=== PATIENT | male | born 1975 | race Asian ===

== ENCOUNTER → 2020-03-05 09:21 | Outpatient (BNVA) | payer OTHER, SELFPAY | PROVIDERS: PCP Internal Medicine; Visit Provider Internal Medicine | DX: Z51.81 Encounter for therapeutic drug level monitoring (principal); Z79.899 Other long term (current) drug therapy | CPT/HCPCS: 80305 ==

== ENCOUNTER → 2020-04-05 09:43 | Outpatient (BNVA) | payer OTHER, SELFPAY | PROVIDERS: Visit Provider Internal Medicine | DX: Z76.89 Persons encountering health services in other specified circumstances (principal) ==

== ENCOUNTER → 2020-04-30 13:25 | Outpatient (BNVA) | payer OTHER, SELFPAY | PROVIDERS: Visit Provider Internal Medicine | DX: Z76.89 Persons encountering health services in other specified circumstances (principal) ==

== ENCOUNTER → 2020-05-31 09:28 | Outpatient (BNVA) | payer OTHER, SELFPAY | PROVIDERS: Visit Provider Internal Medicine | DX: Z76.89 Persons encountering health services in other specified circumstances (principal) ==

== ENCOUNTER → 2020-06-28 09:37 | Outpatient (BNVA) | payer OTHER, SELFPAY | PROVIDERS: Visit Provider Internal Medicine ==

== ENCOUNTER → 2020-07-26 09:46 | Outpatient (BNVA) | payer OTHER, SELFPAY | PROVIDERS: PCP Internal Medicine; Visit Provider Internal Medicine | DX: F11.99 Opioid use, unspecified with unspecified opioid-induced disorder (principal) ==

== ENCOUNTER → 2020-08-23 09:36 | Outpatient (BNVA) | payer OTHER, SELFPAY | PROVIDERS: PCP Internal Medicine; Visit Provider Internal Medicine | DX: Z51.81 Encounter for therapeutic drug level monitoring (principal) | CPT/HCPCS: 80305 ==

== ENCOUNTER → 2020-09-20 09:01 | Outpatient (BNVA) | payer OTHER, SELFPAY | PROVIDERS: Visit Provider Internal Medicine | DX: Z51.81 Encounter for therapeutic drug level monitoring (principal) | CPT/HCPCS: 80305 ==

== ENCOUNTER → 2020-10-16 11:45 | Outpatient (BNVA) | payer OTHER, SELFPAY | PROVIDERS: Visit Provider Internal Medicine | DX: Z51.81 Encounter for therapeutic drug level monitoring (principal) | CPT/HCPCS: 80305 ==

== ENCOUNTER → 2020-12-11 09:28 | Outpatient (BNVA) | payer OTHER, SELFPAY | PROVIDERS: PCP Internal Medicine; Visit Provider Internal Medicine | DX: F11.20 Opioid dependence, uncomplicated (principal) | CPT/HCPCS: 80305 ==

== ENCOUNTER 2021-02-05 10:04 | Outpatient (REF) | payer OTHER, SELFPAY ==
[2021-02-05 17:08] LABS: Fentanyl, urine Not Detected (Not Detect)
== END 2021-02-05 10:05 | disposition home or self-care (01) ==
LOC: HO.LNP 10:04
PROVIDERS: Visit Provider Internal Medicine
DX: F11.20 Opioid dependence, uncomplicated (principal); Z79.899 Other long term (current) drug therapy
CPT/HCPCS: 80307

== ENCOUNTER → 2021-04-02 10:23 | Outpatient (BNVA) | payer OTHER, SELFPAY | PROVIDERS: Visit Provider Internal Medicine | DX: F11.90 Opioid use, unspecified, uncomplicated (principal) | CPT/HCPCS: 80305 ==

== ENCOUNTER → 2021-06-04 10:36 | Outpatient (BNVA) | payer OTHER, SELFPAY | PROVIDERS: PCP Internal Medicine; Visit Provider Internal Medicine | DX: F11.20 Opioid dependence, uncomplicated (principal); Z51.81 Encounter for therapeutic drug level monitoring; Z79.899 Other long term (current) drug therapy | CPT/HCPCS: 80305 ==

== ENCOUNTER → 2021-07-30 10:37 | Outpatient (BNVA) | payer OTHER, SELFPAY | PROVIDERS: PCP Internal Medicine; Visit Provider Internal Medicine | DX: F11.20 Opioid dependence, uncomplicated (principal); Z51.81 Encounter for therapeutic drug level monitoring; Z79.899 Other long term (current) drug therapy | CPT/HCPCS: 80305 ==

== ENCOUNTER 2021-08-07 12:32 | Outpatient (REF) | payer OTHER, SELFPAY ==
--- NOTE | ~2021-08-07 | XR_ITS ---
EXAMINATION: XR KNEE, BILATERAL XR KNEE, LEFT CLINICAL INFORMATION: Left knee pain. COMPARISON: Multiple priors, most recent left knee radiographs dated 05/29/2019. TECHNIQUE: Standing AP view of both knees and lateral and sunrise views of the left knee. FINDINGS: Right knee: Mild medial compartment joint space narrowing with small marginal osteophytes. No osseous erosion. No fracture or dislocation. No abnormal soft tissue calcification. Left knee: Extensive tibial plateau orthopedic hardware is redemonstrated with medial, lateral, and posterior stabilization plates as well as multiple fixation screws. No hardware fracture. No perihardware lucency to suggest loosening or infection. Healed proximal tibia and proximal fibular fractures in anatomic alignment. Moderate medial compartment joint space narrowing. Small tricompartmental marginal osteophytes. No osseous erosion. No significant joint effusion. No abnormal soft tissue calcification. XR/XR knee standing BI IMPRESSION: Right knee: Mild medial compartment osteoarthritis. Left knee: Redemonstration of tibial plateau orthopedic hardware without evidence of hardware complication. Healed proximal tibia and fibular fractures. Moderate medial as well as more mild lateral and patellofemoral compartment osteoarthritis, slightly progressed.
--- NOTE | ~2021-08-07 | XR_ITS ---
EXAMINATION: XR KNEE, BILATERAL XR KNEE, LEFT CLINICAL INFORMATION: Left knee pain. COMPARISON: Multiple priors, most recent left knee radiographs dated 05/29/2019. TECHNIQUE: Standing AP view of both knees and lateral and sunrise views of the left knee. FINDINGS: Right knee: Mild medial compartment joint space narrowing with small marginal osteophytes. No osseous erosion. No fracture or dislocation. No abnormal soft tissue calcification. Left knee: Extensive tibial plateau orthopedic hardware is redemonstrated with medial, lateral, and posterior stabilization plates as well as multiple fixation screws. No hardware fracture. No perihardware lucency to suggest loosening or infection. Healed proximal tibia and proximal fibular fractures in anatomic alignment. Moderate medial compartment joint space narrowing. Small tricompartmental marginal osteophytes. No osseous erosion. No significant joint effusion. No abnormal soft tissue calcification. XR/XR knee LT 2V IMPRESSION: Right knee: Mild medial compartment osteoarthritis. Left knee: Redemonstration of tibial plateau orthopedic hardware without evidence of hardware complication. Healed proximal tibia and fibular fractures. Moderate medial as well as more mild lateral and patellofemoral compartment osteoarthritis, slightly progressed.
== END 2021-08-07 12:33 | disposition home or self-care (01) ==
LOC: HO.HOSX 12:32
PROVIDERS: Visit Provider Orthopaedic Surgery
DX: G57.32 Lesion of lateral popliteal nerve, left lower limb (principal); S82.142S Displaced bicondylar fracture of left tibia, sequela
CPT/HCPCS: 73560; 73565

== ENCOUNTER → 2021-09-24 10:35 | Outpatient (BNVA) | payer OTHER, SELFPAY | PROVIDERS: PCP Internal Medicine; Visit Provider Internal Medicine | DX: Z51.81 Encounter for therapeutic drug level monitoring (principal); F11.20 Opioid dependence, uncomplicated | CPT/HCPCS: 80305 ==

== ENCOUNTER → 2021-10-09 09:50 | Outpatient (BNVA) | payer OTHER, SELFPAY | PROVIDERS: PCP Internal Medicine; Visit Provider Nurse Practitioner Family | DX: G43.709 Chronic migraine without aura, not intractable, without status migrainosus (principal) ==

== ENCOUNTER → 2021-11-19 10:20 | Outpatient (BNVA) | payer OTHER, SELFPAY | PROVIDERS: PCP Internal Medicine; Visit Provider Internal Medicine | DX: Z51.81 Encounter for therapeutic drug level monitoring (principal); F11.20 Opioid dependence, uncomplicated | CPT/HCPCS: 80305 ==

== ENCOUNTER → 2022-03-27 08:19 | Outpatient (BNVA) | payer OTHER, SELFPAY | PROVIDERS: PCP Internal Medicine; Visit Provider Psychiatry & Neurology Neurology | DX: G43.119 Migraine with aura, intractable, without status migrainosus (principal); R06.83 Snoring; R40.0 Somnolence | CPT/HCPCS: 64615; 64645; J0585 ==

== ENCOUNTER 2022-05-21 11:55 | Outpatient (REF) | payer OTHER, SELFPAY ==
--- NOTE | ~2022-05-21 | XR_ITS ---
EXAMINATION: X-RAY BILATERAL KNEES X-RAY LEFT KNEE CLINICAL INFORMATION: Knee pain COMPARISON: Multiple prior radiographs latest 08/07/2021 TECHNIQUE: AP bilateral knees one view. Left knee 2 views. FINDINGS: Left knee: Status post-ORIF, with extensive orthopedic hardware in the proximal tibia. No milka-hardware lucency to suggest loosening or infection. Healed proximal tibia and fibular fractures.. No new acute fractures seen. Mild-moderate medial compartment arthritis. Marginal spurring in the 3 compartments. Patellofemoral joint space narrowing, more prominent from previous. Small suprapatellar joint fluid.. Right knee: Mild medial compartment osteoarthritis.. XR/XR knee standing BI IMPRESSION: Left knee: Redemonstrated tibial plateau orthopedic hardware, without evidence of hardware complication. No acute fractures seen. Tricompartment osteoarthritis. Mild-moderate medial compartment arthritis. Patellofemoral joint space narrowing more prominent from previous. Right knee: Mild medial compartment arthritis
--- NOTE | ~2022-05-21 | XR_ITS ---
EXAMINATION: X-RAY BILATERAL KNEES X-RAY LEFT KNEE CLINICAL INFORMATION: Knee pain COMPARISON: Multiple prior radiographs latest 08/07/2021 TECHNIQUE: AP bilateral knees one view. Left knee 2 views. FINDINGS: Left knee: Status post-ORIF, with extensive orthopedic hardware in the proximal tibia. No milka-hardware lucency to suggest loosening or infection. Healed proximal tibia and fibular fractures.. No new acute fractures seen. Mild-moderate medial compartment arthritis. Marginal spurring in the 3 compartments. Patellofemoral joint space narrowing, more prominent from previous. Small suprapatellar joint fluid.. Right knee: Mild medial compartment osteoarthritis.. XR/XR knee LT 2V IMPRESSION: Left knee: Redemonstrated tibial plateau orthopedic hardware, without evidence of hardware complication. No acute fractures seen. Tricompartment osteoarthritis. Mild-moderate medial compartment arthritis. Patellofemoral joint space narrowing more prominent from previous. Right knee: Mild medial compartment arthritis
== END 2022-05-21 11:56 | disposition home or self-care (01) ==
LOC: HO.HOSX 11:55
PROVIDERS: Visit Provider Orthopaedic Surgery
DX: M17.12 Unilateral primary osteoarthritis, left knee (principal); Z96.9 Presence of functional implant, unspecified
CPT/HCPCS: 73560; 73565

== ENCOUNTER 2022-06-03 10:02 | Day surgery (SDC) | payer OTHER, SELFPAY ==
--- NOTE | 2022-06-02 08:59 | HO.ANESPROP2 ---
Documented by User: Yina Teixeira NP 06/02/22 09:00 HPI - Anesthesia Eval Consult details Narrative: 47yo M for Left Removal Orthopedic Hardware of knee Suboxone daily PMFSH Active Problems Active Problems: All Active Problems (Updated 05/21/22 @ 12:[address]) Retained orthopedic hardware (Acute) History of fracture of tibia (Acute) Osteoarthritis of left knee (Acute) Migraine with aura, intractable, without status migrainosus (Acute) Snoring (Acute) Daytime somnolence (Acute) Fingernail abnormalities (Acute) Chronic migraine without aura (Acute) Peroneal mononeuropathy (Acute) Tibial plateau fracture (Acute) Opioid use disorder (Acute) Past Medical History Medical History Opioid use disorder Family History Family History Mother Migraines Surgical History Surgical History H/O arthroscopic knee surgery History of carpal tunnel release History of surgery on lower extremity Social History Social History Alcohol intake: never Patient Tobacco Use Status: Never used Tobacco Second Hand Smoke Exposure: No Use of substances other than those prescribed or required for medical reasons: Yes Substance Use Type: Marijuana Are you DNR?: No Advance Directives: No Advance Directives Information Provided: Yes Advance Directives on File: No Current occupational status: employed Current occupation: [employer] Allergies Allergy/AdvReac Type Severity Reaction Status Date / Time seasonal Allergy Unknown congestion Uncoded 05/21/22 12:10 Naloxone HCl AdvReac Unknown migraines Uncoded 05/21/22 12:10 Home Medications Medication Instructions Recorded Confirmed Last Taken Type ltmjohj-hnnlnjspsmquw-ruryibcx 250 1 tab PO Q4-6H PRN Migraine 10/09/21 06/03/22 05/31/22 History mg-250 mg-65 mg tablet (Excedrin Headache Migraine) ibuprofen 800 mg tablet 800 mg PO Q8H PRN Pain 03/27/22 06/03/22 06/01/22 History Exam Exam Date and Time: June 02, 2022 0859 Assessment and Plan Assessment Anesthesia Assessment: Chart Reviewed Documented by User: Sancho West MD 06/03/22 11:32 PMFSH Past Medical History Medical History Opioid use disorder Family History Family History Mother Migraines Family history of problems with anesthesia: No Surgical History Surgical History H/O arthroscopic knee surgery History of carpal tunnel release History of surgery on lower extremity History of Problems with Anesthesia: No Social History Social History Alcohol intake: never Patient Tobacco Use Status: Never used Tobacco Second Hand Smoke Exposure: No Use of substances other than those prescribed or required for medical reasons: Yes Substance Use Type: Marijuana Are you DNR?: No Advance Directives: No Advance Directives Information Provided: Yes Advance Directives on File: No Current occupational status: employed Current occupation: [employer] Allergies Allergy/AdvReac Type Severity Reaction Status Date / Time seasonal Allergy Unknown congestion Uncoded 05/21/22 12:10 Naloxone HCl AdvReac Unknown migraines Uncoded 05/21/22 12:10 Home Medications Medication Instructions Recorded Confirmed Last Taken Type nlvgimv-bjeephxynogot-mrfeiaxx 250 1 tab PO Q4-6H PRN Migraine 10/09/21 06/03/22 05/31/22 History mg-250 mg-65 mg tablet (Excedrin Headache Migraine) ibuprofen 800 mg tablet 800 mg PO Q8H PRN Pain 03/27/22 06/03/22 06/01/22 History Exam Airway Mallampati Class: II TM Dist: >3cm Neck ROM: Full Loose/Missing/Broken Teeth: No Heart: rrr Lungs: cta Assessment and Plan Final Anesthetic Review Family History of Problems with Anesthesia: No History of Problems with Anesthesia: No NPO: Yes ASA Class: II Final Preanesthetic Review: No Changes in Pt Med Stat, Meds/Allgs Chart Reviewed, Consent Obtained/Reviewed and Anes Risks/Benef Reviewed Patient Risk: Low Procedure Risk: Low Anesthetic Plan Anesthetic Plan: GA and Agree w/ Assess. and Plan Disposition: Standard PACU
[2022-06-03] VITALS (12 sets, daily range): BP systolic 106–131; BP diastolic 67–87; PULSE 52–62; RESP 16–20; TEMP 36.2–36.5; O2SAT 96–99; BMI 25.7
--- NOTE | ~2022-06-03 | FL_ITS ---
EXAMINATION: XR FLUOROSCOPY WITH IMAGES CLINICAL INFORMATION: Hardware removal COMPARISON: None. TECHNIQUE: Fluoroscopy Supervised By: Dr. Geronimo Daniels. Fluoroscopy Time: 0.1 minutes. Cumulative Dose: 1.26 mGy. DAP: 0.0218 Gycm2. Images: 1. FINDINGS: Single view of the left kidney. There is orthopedic hardware in the proximal tibia. FL/FL guidance in OR IMPRESSION: Fluoroscopy performed in the operating room. Please see operative report for additional information.
[2022-06-03] MEDS: Lactated Ringers 1,000 ML 100 ML IVCONT (10:59)
--- NOTE | 2022-06-03 12:17 | PC.NURSE ---
Urine obtained as ordered by anesthesia. Results pending. Dr. Daniels at bedside asking why utox has been ordered for this patient, Dr. Wets present and states he does not need that, we can go in . Eri Nicloe OR nurse made aware. Patient into OR.
[2022-06-03 12:31] LABS: Amphetamine Screen Urine Not Detected (Not Detect); Barbiturates, Urine Not Detected (Not Detect); Benzodiazepines Screen Urine Not Detected (Not Detect); Cannabinoid Screen Urine POSITIVE (Not Detect); Cocaine Screen Urine Not Detected (Not Detect); Fentanyl, urine Not Detected (Not Detect); Opiate Screen Urine Not Detected (Not Detect); Phencyclidine Screen Urine Not Detected (Not Detect)
--- NOTE | 2022-06-03 13:18 | P.BOP_ITS ---
Brief Operative Note Date of Service: 06/03/22 Pre-op diagnosis: left knee OA and retained ortho hardware Post-op diagnosis: same Procedure: PATRIA left knee Left knee with partial laterla and medial meniscectomy and chondroplasty Surgeon: Geronimo Daniels MD Anesthesia: GETA and local Was an Bioinformatics Engineer used for this Procedure?: Yes Bioinformatics Engineer: Maribell Licea Estimated blood loss (mL): 10 Tourniquet time (min): 25 IV fluids (mL): 500 Pathology: none sent Condition: stable Disposition: PACU
[2022-06-03] MEDS: fentaNYL citrate/PF 100 MCG/2 ML VIAL 25 MCG IVPUSH ×4 (14:03→14:18)
[2022-06-03] MEDS: oxyCODONE HCl Immed Release 5 MG TABLET PO (14:06)
--- NOTE | 2022-06-09 10:36 | P.OP_ITS ---
Operative Note Operative Note Date of Service: 06/03/22 Narrative: Date of Service: 06/03/22 Pre-op diagnosis: left knee OA and retained ortho hardware Post-op diagnosis: same Procedure: 1)PATRIA left knee 2)Left knee with partial lateral and medial meniscectomy and chondroplasty Surgeon: Geronimo Daniels MD Anesthesia: GETA and local Was an Radio Division Captain used for this Procedure?: Yes Radio Division Captain: Maribell Licea Estimated blood loss (mL): 10 Tourniquet time (min): 25 IV fluids (mL): 500 Pathology: none sent Condition: stable Disposition: PACU Procedure in detail: Patient was brought to the operating room placed supine on the arthroscopic table and prepped and draped in standard sterile fashion. A time-out was called to identify proper site proper procedure proper surgeon and IV antibiotics per weight were administered. I began by exsanguinating the limb and insufflating tourniquet to 300 mm Hg. Flouroscopy was then used to identify the tibial plateau scres that was proud medially. I then made a 2 cm incision over the prior incision and dissected down to the plate. A Mipso screwdriver was used to remove the proud screw. This was removed easily. No additional hardware was removed. I then irrigated and closed with would with absorbable sutures and sking glue. Then made a standard anterolateral stab incision. Thew knee was insufflated with water and 30 degree arthroscope was placed. There was grade 1 fibrillations of the patella but overall suprapatellar pouch was plane and the gutters were clean. I descended into the medial compartment where I made my medial portal under direct visualization. There were a small radial tear of the medial meniscus. The root was intact and there was grade 1 changes with some scattered grade 2 changes throughout the plateau. There was a medial femoral condylar defect that was approcimately 5 mm x 5 mm with G 3/4 changes. This was anterior. I used a combination of shaver and cautery to debride the small medial meniscus tear and to remove unstable chondral fragments and fibrillations. There was some fraying of the anteromedial meniscus and a small medial plica both of which were debrided with a shaver. I examined the notch and the ACL was intact. I examined the lateral compartment which has chondromalacia of the plateau and a small radial tear of the lateral meniscus. This was debrided with a shaver. Once I was satisfied with the debridement I removed all instrumentation and closed the portals with skin glue. 25 mL of 2% Marcaine with epinephrine was injected into the joint and the surrounding soft tissues. Patient was then placed in sterile dressing extubated brought recovery room stable condition. There were no known complications.
== END 2022-06-03 15:24 | disposition home or self-care (01) ==
LOC: HO.SSS 10:02
PROVIDERS: Nurse Practitioner; PCP Internal Medicine; Visit Provider Orthopaedic Surgery
PROC: (CPT 20680; principal; 2022-06-03 12:20)
DX: M17.12 Unilateral primary osteoarthritis, left knee (principal); M25.562 Pain in left knee; Z96.9 Presence of functional implant, unspecified; M94.262 Chondromalacia, left knee; M67.52 Plica syndrome, left knee; J30.2 Other seasonal allergic rhinitis; Z79.899 Other long term (current) drug therapy; F11.10 Opioid abuse, uncomplicated; F12.90 Cannabis use, unspecified, uncomplicated; Z98.890 Other specified postprocedural states
CPT/HCPCS: 20680; 29880; 80307; J0131; J0690; J1100; J1885; J2405; J2795; J3010

== ENCOUNTER → 2022-06-15 13:12 | Outpatient (BNVA) | payer OTHER, SELFPAY | PROVIDERS: PCP Internal Medicine; Visit Provider Physician Assistant | DX: M17.12 Unilateral primary osteoarthritis, left knee (principal) ==

== ENCOUNTER → 2022-06-19 09:31 | Outpatient (BNVA) | payer OTHER, SELFPAY | PROVIDERS: PCP Internal Medicine; Visit Provider Physician Assistant | DX: Z13.89 Encounter for screening for other disorder (principal) ==

== ENCOUNTER → 2022-06-29 09:02 | Outpatient (BNVA) | payer OTHER, SELFPAY | PROVIDERS: PCP Internal Medicine; Visit Provider Nurse Practitioner Psychiatric/Mental Health | DX: Z51.81 Encounter for therapeutic drug level monitoring (principal); F11.21 Opioid dependence, in remission | CPT/HCPCS: 80305 ==

== ENCOUNTER → 2022-07-10 11:29 | Outpatient (BNVA) | payer OTHER, SELFPAY | PROVIDERS: PCP Internal Medicine; Visit Provider Physician Assistant | DX: Z13.89 Encounter for screening for other disorder (principal) ==

== ENCOUNTER → 2022-08-21 09:26 | Outpatient (BNVA) | payer OTHER, SELFPAY | PROVIDERS: Visit Provider Nurse Practitioner Psychiatric/Mental Health | DX: Z51.81 Encounter for therapeutic drug level monitoring (principal); Z79.899 Other long term (current) drug therapy ==

== ENCOUNTER → 2022-10-27 09:25 | Outpatient (BNVA) | payer OTHER, SELFPAY | PROVIDERS: PCP Internal Medicine; Visit Provider Nurse Practitioner Psychiatric/Mental Health | DX: F11.20 Opioid dependence, uncomplicated (principal); Z51.81 Encounter for therapeutic drug level monitoring | CPT/HCPCS: 80305 ==

== ENCOUNTER 2022-12-22 09:09 | Outpatient (AMB) | payer OTHER, SELFPAY ==
--- NOTE | 2022-12-22 09:12 | A.OFFVIS_ITS ---
Intake Vital Signs 12/22/22 09:19 BP 110/72 Blood Pressure Location Lt radial Position Sitting Pulse 63 Pulse Source Pulse Oximeter Pulse Oximetry (%) 98 Oxygen Delivery Method Room Air Intake Visit Reasons: mat visit Intake Note: The patient presents for a mat visit Billing Coordinator Required: No Allergies seasonal Allergy (Unknown, Uncoded 12/22/22 09:16) congestion Naloxone HCl Adverse Reaction (Unknown, Uncoded 12/22/22 09:16) migraines Do you need a note to return to daycare/school/sports/work: No HPI mat visit HPI Details Patient presents for follow up Currently prescribed suboxone 8mg BID Recently had physical and labs with PCP will request labs Discussed self care--taking time for [facility] Medical History Opioid use disorder Surgical History H/O arthroscopic knee surgery History of carpal tunnel release History of surgery on lower extremity Family History Mother Migraines Social History Alcohol intake: never Patient Tobacco Use Status: Never used Tobacco Second Hand Smoke Exposure: No Substance Use Type: Marijuana Current occupational status: employed 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 Review of Systems Const Reports as per HPI and Reports no additional complaints Physical Exam Vital Signs: Last Vital Signs Pulse 63 12/22/22 09:19 BP 110/72 12/22/22 09:19 Pulse Ox 98 12/22/22 09:19 Oxygen Delivery Method Room Air 12/22/22 09:19 Const General: cooperative, healthy appearing and no acute distress Psych Appearance: well kempt Speech and movement: Clear speech present Affect: normal affect Attitude: cooperative Thought process: Normal thought process present Thought content: Normal thought content present Insight: Good insight present (Psych) Judgement: Good judgement present (Psych) Assessment & Plan Assessment & Plan (1) Opioid use disorder, moderate, in sustained remission: Code(s): F11.21 - Opioid dependence, in remission Plan: * continue suboxone at current dose * follow up 3 months Coding Level of Care Code Est Pt Level 3 (89299) Diagnoses Opioid use disorder, moderate, in sustained remission F11.21
[2022-12-22 09:19] VITALS: BP 110/72; PULSE 63; O2SAT 98
== END 2022-12-22 09:42 | disposition home or self-care (01) ==
LOC: HO.HCC 09:09
PROVIDERS: PCP Internal Medicine; Visit Provider Nurse Practitioner Psychiatric/Mental Health
DX: F11.21 Opioid dependence, in remission (principal)
CPT/HCPCS: 99213

== ENCOUNTER → 2022-12-22 09:09 | Outpatient (BNVA) | payer OTHER, SELFPAY | PROVIDERS: PCP Internal Medicine; Visit Provider Nurse Practitioner Psychiatric/Mental Health ==

== ENCOUNTER 2023-03-15 09:00 | Outpatient (AMB) | payer OTHER, SELFPAY ==
--- NOTE | 2023-03-15 09:08 | MHC.OFFVIS ---
Intake Vital Signs 03/15/23 09:12 BP 110/68 Blood Pressure Location Lt radial Position Sitting Pulse 75 Pulse Source Pulse Oximeter Pulse Oximetry (%) 98 Oxygen Delivery Method Room Air Intake Visit Reasons: mat visit Intake Note: the patient presents for a mat visit Instructional Facilitator Required: No Allergies seasonal Allergy (Unknown, Uncoded 03/15/23 09:12) congestion Naloxone HCl Adverse Reaction (Unknown, Uncoded 03/15/23 09:12) migraines Do you need a note to return to daycare/school/sports/work: No HPI mat visit HPI Details Patient presents for follow up Currently prescribed Buprenorphine 8mg BID Tolerating current dose. No questions or concerns at this time [facility] Medical History Opioid use disorder Surgical History H/O arthroscopic knee surgery History of carpal tunnel release History of surgery on lower extremity Family History (Reviewed 05/21/22 @ 12:16 by Caryl Casanova [facility]) Mother Migraines Social History Alcohol intake: never Patient Tobacco Use Status: Never used Tobacco Second Hand Smoke Exposure: No Substance Use Type: Marijuana Current occupational status: employed Current occupation: [employer] Review of Systems Const Reports as per HPI Physical Exam Vital Signs: Last Vital Signs Pulse 75 03/15/23 09:12 BP 110/68 03/15/23 09:12 Pulse Ox 98 03/15/23 09:12 Oxygen Delivery Method Room Air 03/15/23 09:12 Const General: cooperative, healthy appearing and no acute distress Psych Appearance: well kempt Speech and movement: Clear speech present Affect: normal affect Attitude: cooperative Thought process: Normal thought process present Thought content: Normal thought content present Insight: Good insight present (Psych) Judgement: Good judgement present (Psych) Assessment & Plan Assessment & Plan (1) Opioid use disorder, moderate, in sustained remission: Code(s): F11.21 - Opioid dependence, in remission Plan: continue suboxone at current dose follow up 2 months Coding Level of Care Code Est Pt Level 3 (49676) Diagnoses Opioid use disorder, moderate, in sustained remission F11.21
[2023-03-15 09:12] VITALS: BP 110/68; PULSE 75; O2SAT 98
== END 2023-03-15 09:36 | disposition home or self-care (01) ==
PROVIDERS: PCP Internal Medicine; Visit Provider Nurse Practitioner Psychiatric/Mental Health
DX: F11.21 Opioid dependence, in remission (principal)
CPT/HCPCS: 99213

== ENCOUNTER → 2023-03-15 09:00 | Outpatient (BNVA) | payer OTHER, SELFPAY | PROVIDERS: PCP Internal Medicine; Visit Provider Nurse Practitioner Psychiatric/Mental Health ==

== ENCOUNTER 2023-05-07 09:09 | Outpatient (AMB) | payer OTHER, SELFPAY ==
--- NOTE | 2023-05-07 09:11 | A.OFFVIS_ITS ---
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 Required: No Allergies seasonal Allergy (Unknown, Uncoded 05/07/23 09:11) congestion Naloxone HCl Adverse Reaction (Unknown, Uncoded 05/07/23 09:11) migraines Do you need a note to return to daycare/school/sports/work: No HPI mat visit HPI Details Patient presents for follow up Currently prescribed suboxone 8mg BID No issues related to Suboxone Discussed scheduling sleep study [facility] Medical History (Updated 05/07/23 @ 10:12 by Charisse Jacobson CNP) Opioid use disorder Surgical History History of surgery on lower extremity H/O arthroscopic knee surgery History of carpal tunnel release Family History Mother Migraines Social History Alcohol intake: never Patient Tobacco Use Status: Never used Tobacco Second Hand Smoke Exposure: No Substance Use Type: Marijuana Current occupational status: employed 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 Review of Systems Const Reports as per HPI and Reports no additional complaints Physical Exam Vital Signs: Last Vital Signs Pulse 70 05/07/23 09:17 BP 128/82 05/07/23 09:17 Pulse Ox 98 05/07/23 09:17 Oxygen Delivery Method Room Air 05/07/23 09:17 Const General: cooperative, healthy appearing and no acute distress Psych Appearance: well kempt Speech and movement: Clear speech present Affect: normal affect Attitude: cooperative Thought process: Normal thought process present Thought content: Normal thought content present Insight: Good insight present (Psych) Judgement: Good judgement present (Psych) Assessment & Plan Assessment & Plan (1) Opioid use disorder, moderate, in sustained remission: Code(s): F11.21 - Opioid dependence, in remission Plan: * continue suboxone at current dose * follow up 3 months Coding Level of Care Code Est Pt Level 3 (29947) Diagnoses Opioid use disorder, moderate, in sustained remission F11.21
[2023-05-07 09:17] VITALS: BP 128/82; PULSE 70; O2SAT 98
== END 2023-05-07 09:41 | disposition home or self-care (01) ==
PROVIDERS: PCP Internal Medicine; Visit Provider Nurse Practitioner Psychiatric/Mental Health
DX: F11.21 Opioid dependence, in remission (principal)
CPT/HCPCS: 99213

== ENCOUNTER → 2023-05-07 09:09 | Outpatient (BNVA) | payer OTHER, SELFPAY | PROVIDERS: PCP Internal Medicine; Visit Provider Nurse Practitioner Psychiatric/Mental Health ==

== ENCOUNTER 2023-07-27 08:55 | Outpatient (AMB) | payer OTHER, SELFPAY ==
--- NOTE | 2023-07-27 08:58 | MHC.AM.SUB ---
Intake Vital Signs 07/27/23 09:04 BP 130/80 Blood Pressure Location Rt radial Position Sitting Respiration 18 Pulse 89 Pulse Source Pulse Oximeter Pulse Oximetry (%) 98 Oxygen Delivery Method Room Air Intake Visit Reasons: mat visit Allergies seasonal Allergy (Unknown, Uncoded 05/07/23 09:11) congestion Naloxone HCl Adverse Reaction (Unknown, Uncoded 05/07/23 09:11) migraines HPI mat visit HPI Details Patient presents for follow up Currently prescribed Suboxone 8mg BID Mother recently . Increasing stressors with caring for his father--strong family supports. Patient sharing increasing and anxiety and irritability related to feeling overwhelmed Has been avoiding addressing ADHD sx due to fear it would impact his productivity at work. Discussed MOA for stimulants and how they should not impact work performance, however may decrease anxiety while working related to racing thoughts of what has to be done next. 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 Review of Systems Const Reports as per HPI and Reports no additional complaints Physical Exam Vital Signs: Last Vital Signs Pulse 89 07/27/23 09:04 Resp 18 07/27/23 09:04 BP 130/80 07/27/23 09:04 Pulse Ox 98 07/27/23 09:04 Oxygen Delivery Method Room Air 07/27/23 09:04 Const General: cooperative, healthy appearing and no acute distress Psych Appearance: well kempt Speech and movement: Clear speech present Affect: normal affect Attitude: cooperative Thought process: Normal thought process present Thought content: Normal thought content present Insight: Good insight present (Psych) Judgement: Good judgement present (Psych) Assessment & Plan Assessment & Plan (1) Opioid use disorder, moderate, in sustained remission: Code(s): F11.21 - Opioid dependence, in remission Plan: no change to suboxone dose--not yet due for a refill trial of concerta--discussed side effects, dosing, reinforced importance of minimizing caffeine follow up one month Medications: New methylphenidate HCl ER (Concerta) Partial Fill upon patient request. 27 mg PO QAM 30 tabs 0RF Coding Level of Care Code Est Pt Level 4 (23037) Diagnoses Opioid use disorder, moderate, in sustained remission F11.21
[2023-07-27 09:04] VITALS: BP 130/80; PULSE 89; RESP 18; O2SAT 98
== END 2023-07-27 09:46 | disposition home or self-care (01) ==
PROVIDERS: PCP Internal Medicine; Visit Provider Nurse Practitioner Psychiatric/Mental Health
DX: F11.21 Opioid dependence, in remission (principal)
CPT/HCPCS: 99214

== ENCOUNTER → 2023-07-27 08:55 | Outpatient (BNVA) | payer OTHER, SELFPAY | PROVIDERS: PCP Internal Medicine; Visit Provider Nurse Practitioner Psychiatric/Mental Health ==

== ENCOUNTER 2023-08-26 09:55 | Outpatient (AMB) | payer OTHER, SELFPAY ==
--- NOTE | 2023-08-26 10:07 | MHC.AM.SUB ---
Intake Intake Visit Reasons: mat visit Allergies seasonal Allergy (Unknown, Uncoded 05/07/23 09:11) congestion Naloxone HCl Adverse Reaction (Unknown, Uncoded 05/07/23 09:11) migraines HPI mat visit HPI Details Patient presents for follow up via telehealth Started Concerta 27mg last month. He reports feeling no effect, honestly, I can't tell the difference Denies any increase in anxiety, shakiness, heart racing Suboxone dose stable --no side effects related to this [facility] Medical History (Updated 05/07/23 @ 10:12 by Charisse Jacobson CNP) Opioid use disorder Surgical History History of surgery on lower extremity H/O arthroscopic knee surgery History of carpal tunnel release Family History Mother Migraines Social History Alcohol intake: never Patient Tobacco Use Status: Never used Tobacco Second Hand Smoke Exposure: No Substance Use Type: Marijuana Current occupational status: employed Current occupation: [employer] Review of Systems Const Reports as per HPI Assessment & Plan Assessment & Plan (1) Opioid use disorder, moderate, in sustained remission: Code(s): F11.21 - Opioid dependence, in remission Plan: no change to suboxone dose increase vyvanse dose to 36mg follow up one month Medications: New methylphenidate HCl ER (Concerta) Partial Fill upon patient request. 36 mg PO QAM 30 tabs 0RF Discontinued methylphenidate HCl ER (Concerta) Partial Fill upon patient request. Discontinued Reason: Doctor's Order 27 mg PO QAM 30 tabs 0RF Telehealth Telehealth Location of provider rendering services: practice address Location of patient: other Patient Identification confirmed using: Name, : Yes Telehealth method: voice only Patient verbally consented to treatment: Yes Patient verbally consented to billing insurance company: Yes Coding Level of Care Code Est Pt Level 4 (13572) Diagnoses Opioid use disorder, moderate, in sustained remission F11.21
== END 2023-08-26 10:10 | disposition home or self-care (01) ==
PROVIDERS: PCP Internal Medicine; Visit Provider Nurse Practitioner Psychiatric/Mental Health
DX: F11.21 Opioid dependence, in remission (principal)
CPT/HCPCS: 99214

== ENCOUNTER → 2023-08-26 09:55 | Outpatient (BNVA) | payer OTHER, SELFPAY | PROVIDERS: PCP Internal Medicine; Visit Provider Nurse Practitioner Psychiatric/Mental Health ==

== ENCOUNTER 2023-09-24 12:59 | Outpatient (AMB) | payer OTHER, SELFPAY ==
--- NOTE | 2023-09-24 13:00 | A.OFFVISCC_ITS ---
Intake Visit Reasons: MAT Tele Allergies seasonal Allergy (Unknown, Uncoded 05/07/23 09:11) congestion Naloxone HCl Adverse Reaction (Unknown, Uncoded 05/07/23 09:11) migraines HPI HPI MAT Tele: Details: Patient presents for follow up and medication increase evaluation Reports he has not noted any difference at all. Agreed to stop medication and assess if he notices a difference takes Discussed Sublocade ,would like to move forward with the injection. 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 Review of Systems Const Reports as per HPI Telehealth Telehealth Telehealth Platform: Telephone Location of provider rendering services: practice address Location of patient: other Patient Identification confirmed using: Name, : Yes Telehealth method: voice only Patient verbally consented to treatment: Yes Patient verbally consented to billing insurance company: Yes Assessment & Plan Assessment & Plan (1) Opioid use disorder, moderate, in sustained remission: Code(s): F11.21 - Opioid dependence, in remission Category: Medical Plan: * sublocade ordered * follow up one month Medications: New buprenorphine ER (Sublocade) 300 mg (1.5 mL) subcut .once every 28 days 1.5 mL 2RF
== END 2023-09-24 13:16 | disposition home or self-care (01) ==
PROVIDERS: PCP Internal Medicine; Visit Provider Nurse Practitioner Psychiatric/Mental Health
DX: F11.21 Opioid dependence, in remission (principal)
CPT/HCPCS: 99213

== ENCOUNTER → 2023-09-24 12:59 | Outpatient (BNVA) | payer OTHER, SELFPAY | PROVIDERS: PCP Internal Medicine; Visit Provider Nurse Practitioner Psychiatric/Mental Health ==

== ENCOUNTER 2023-11-08 09:10 | Outpatient (AMB) | payer OTHER, SELFPAY ==
--- NOTE | 2023-11-08 14:28 | A.OFFVISCC_ITS ---
Intake Visit Reasons: MAT Allergies seasonal Allergy (Unknown, Uncoded 05/07/23 09:11) congestion Naloxone HCl Adverse Reaction (Unknown, Uncoded 05/07/23 09:11) migraines HPI HPI MAT: Details: Patient presents for follow up Was scheduled to receive injection today, however never connected with pharamcy. Called during his visit and answered questions required by insurance Discussed injection, side effect profile. 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 Review of Systems Const Reports as per HPI and Reports no additional complaints Physical Exam Const General: cooperative, healthy appearing and no acute distress Psych Appearance: well kempt Speech and movement: Clear speech present Affect: normal affect Attitude: cooperative Thought process: Normal thought process present Thought content: Normal thought content present Insight: Good insight present (Psych) Judgement: Good judgement present (Psych) Assessment & Plan Assessment & Plan (1) Opioid use disorder, moderate, in sustained remission: Code(s): F11.21 - Opioid dependence, in remission Category: Medical Plan: * suboxone refilled * follow up three weeks Medications: Changed From buprenorphine HCl 8 mg sublingual BID 30 days 60 tabs 2RF To buprenorphine HCl 8 mg sublingual BID 60 tabs 0RF
== END 2023-11-08 09:49 | disposition home or self-care (01) ==
PROVIDERS: PCP Internal Medicine; Visit Provider Nurse Practitioner Psychiatric/Mental Health
DX: F11.21 Opioid dependence, in remission (principal)
CPT/HCPCS: 99213

== ENCOUNTER → 2023-11-08 09:10 | Outpatient (BNVA) | payer OTHER, SELFPAY | PROVIDERS: PCP Internal Medicine; Visit Provider Nurse Practitioner Psychiatric/Mental Health ==

== ENCOUNTER 2023-12-01 09:04 | Outpatient (AMB) | payer OTHER, SELFPAY ==
--- NOTE | 2023-12-01 09:08 | AM.OFFVISNUR ---
Intake Visit Reasons: Sub Inj Allergies seasonal Allergy (Unknown, Uncoded 05/07/23 09:11) congestion Naloxone HCl Adverse Reaction (Unknown, Uncoded 05/07/23 09:11) migraines Nursing Note Patient to clinic today for first Sublocade injection. Alert and oriented x4, injection today given per orders in the RLQ. Will follow up in 4 weeks with RN. Education provided to patient regarding signs and symptoms to look for, he verbally agrees to understanding and will call the [facility] with any concerns or questions. Office Meds Sublocade 300 mg/1.5 mL solution,extended release subcutaneous syringe Performing Provider: Charisse Jacobson CNP Performing Location: [facility] Administered by: Rosanne Manning RN on 12/01/23 09:11 Dose Route Admin Location Dispensed Lot Number Expiration Date [facility] Equine Vet 300 mg subcut RLQ 1.5 mL [id number] 02/14/25 [address]-8 [employer]. Assessment & Plan Assessment & Plan Orders: Orders AMB Buprenorphine Injection - Patient Supplied Today F11.21 - Opioid dependence, in remission
== END 2023-12-01 09:16 | disposition home or self-care (01) ==
PROVIDERS: PCP Internal Medicine
DX: F11.21 Opioid dependence, in remission (principal)

== ENCOUNTER → 2023-12-01 09:04 | Outpatient (BNVA) | payer OTHER, SELFPAY | PROVIDERS: PCP Internal Medicine | DX: F11.21 Opioid dependence, in remission (principal) | CPT/HCPCS: 96372; Q9992 ==

== ENCOUNTER 2023-12-30 09:11 | Outpatient (AMB) | payer OTHER, SELFPAY ==
--- NOTE | 2023-12-30 15:47 | AM.OFFVISNUR ---
Intake Visit Reasons: Sub Inj Allergies seasonal Allergy (Unknown, Uncoded 05/07/23 09:11) congestion Naloxone HCl Adverse Reaction (Unknown, Uncoded 05/07/23 09:11) migraines Nursing Note Patient Presents for second sublocade Injection. Current Dose is 300mg . Given in LLQ the with no noted or stated complication. States his last injection was very itchy, and rubbed along his pants too much while working. We brought the injection higher than the pant line this time. Cravings he stated started about week 3, he took his suboxone everyday for 7 days and stated that helped. Last appt with provider was last month, will follow up with RN and provider in 4 weeks for injection. Will need to see provider for check in in january . Office Meds Sublocade 300 mg/1.5 mL solution,extended release subcutaneous syringe Performing Provider: Charisse Jacobson CNP Performing Location: [facility] Administered by: Rosanne Manning RN on 12/30/23 10:23 Dose Route Admin Location Dispensed Lot Number Expiration Date [facility] Gun Stock Checker 300 mg subcut LLQ 1.5 mL [id number] 12/31/23 [address]-3 [email or web address]. Assessment & Plan Assessment & Plan Orders: Orders AMB Buprenorphine Injection - Patient Supplied 12/30/23 F11.90 - Opioid use, unspecified, uncomplicated
== END 2023-12-30 10:36 | disposition home or self-care (01) ==
PROVIDERS: PCP Internal Medicine
DX: F11.90 Opioid use, unspecified, uncomplicated (principal)

== ENCOUNTER → 2023-12-30 09:11 | Outpatient (BNVA) | payer OTHER, SELFPAY | PROVIDERS: PCP Internal Medicine | DX: F11.90 Opioid use, unspecified, uncomplicated (principal) | CPT/HCPCS: 96372; Q9992 ==

== ENCOUNTER 2024-01-27 09:18 | Outpatient (AMB) | payer OTHER, SELFPAY ==
--- NOTE | 2024-01-27 09:32 | AM.OFFVISNUR ---
Intake Visit Reasons: Sub Inj Allergies seasonal Allergy (Unknown, Uncoded 05/07/23 09:11) congestion Naloxone HCl Adverse Reaction (Unknown, Uncoded 05/07/23 09:11) migraines Nursing Note Patient Presents for sublocade Injection. Current Dose 300mg . Given in LLQ the with no noted or stated complication. Denies any issues with previous injection. Denies symptoms, and denies any break through cravings. Last appt with provider was last month , will follow up with RN in 4 weeks for injection. Will need to see provider for check in March . Office Meds Sublocade 300 mg/1.5 mL solution,extended release subcutaneous syringe Performing Provider: Charisse Jacobson CNP Performing Location: [facility] Administered by: Rosanne Manning RN on 01/27/24 11:10 Dose Route Admin Location Dispensed Lot Number Expiration Date [facility] Wildland Fire Fighter Specialist 300 mg subcut LLQ 1.5 mL [id number] 02/14/25 [address]-8 [employer]. Assessment & Plan Assessment & Plan Orders: Orders AMB Buprenorphine Injection - Patient Supplied Today F11.90 - Opioid use, unspecified, uncomplicated Medications: New Sublocade ER (buprenorphine) 300 mg (1.5 mL) subcut ONCE 1.5 mL 0RF NS F11.90 - Opioid use, unspecified, uncomplicated
== END 2024-01-27 09:38 | disposition home or self-care (01) ==
PROVIDERS: PCP Internal Medicine
DX: F11.90 Opioid use, unspecified, uncomplicated (principal)

== ENCOUNTER → 2024-01-27 09:18 | Outpatient (BNVA) | payer OTHER, SELFPAY | PROVIDERS: PCP Internal Medicine | DX: F11.90 Opioid use, unspecified, uncomplicated (principal) | CPT/HCPCS: 96372; Q9992 ==

== ENCOUNTER 2024-02-24 09:43 | Outpatient (AMB) | payer OTHER, SELFPAY ==
--- NOTE | 2024-02-24 11:21 | AM.OFFVISNUR ---
Intake Visit Reasons: Sub Inj Allergies seasonal Allergy (Unknown, Uncoded 05/07/23 09:11) congestion Naloxone HCl Adverse Reaction (Unknown, Uncoded 05/07/23 09:11) migraines Nursing Note Patient Presents for Brixadi Injection. Current Dose 128mg . Given in the with XIMENA no noted or stated complications. Denies any issues with previous injection. Denies symptoms, and denies any break through cravings. Will follow up with RN in 4 weeks for injection. Will need to see provider for check in April . Office Meds buprenorphine 128 mg/0.36 mL solution,ext.rel.subcutaneous syringe Performing Provider: Charisse Jacobson CNP Performing Location: [facility] Administered by: Rosanne Manning RN on 02/24/24 16:15 Dose Route Admin Location Dispensed Lot Number Expiration Date [facility] Decorating Supervisor 128 mg subcut XIMENA 0.36 mL [id number] 02/13/26 49424-452-04 [employer]. Assessment & Plan Assessment & Plan Orders: Orders AMB Buprenorphine Injection - Patient Supplied 02/24/24 F11.90 - Opioid use, unspecified, uncomplicated
== END 2024-02-24 11:14 | disposition home or self-care (01) ==
PROVIDERS: PCP Internal Medicine
DX: F11.90 Opioid use, unspecified, uncomplicated (principal)

== ENCOUNTER → 2024-02-24 09:43 | Outpatient (BNVA) | payer OTHER, SELFPAY | PROVIDERS: PCP Internal Medicine | DX: F11.90 Opioid use, unspecified, uncomplicated (principal) | CPT/HCPCS: 96372; J0578 ==

== ENCOUNTER 2024-03-23 09:30 | Outpatient (AMB) | payer OTHER, SELFPAY ==
--- NOTE | 2024-03-23 09:44 | AM.OFFVISNUR ---
Intake Visit Reasons: Sub Inj Allergies seasonal Allergy (Unknown, Uncoded 05/07/23 09:11) congestion Naloxone HCl Adverse Reaction (Unknown, Uncoded 05/07/23 09:11) migraines Nursing Note Patient Presents for Brixadi Injection. Current Dose 126mg. Given in the XIMENA with no noted or stated complications. States at about the 2 week marla of getting his second injection he began sweating, feeling warm at night and anxious. Suboxone strips given to him are creating migraines . Will follow up with Provider tommorow morning via telehealth, and check in with Nurse in 2 weeks. Office Meds buprenorphine 128 mg/0.36 mL solution,ext.rel.subcutaneous syringe Performing Provider: Charisse Jacobson CNP Performing Location: [facility] Administered by: Rosanne Manning RN on 03/23/24 09:45 Dose Route Admin Location Dispensed Lot Number Expiration Date [facility] Clay Structure Builder And Servicer 128 mg subcut XIMENA 0.36 mL [id number] 02/13/26 83431-878-09 [employer]. Assessment & Plan Assessment & Plan Orders: Orders AMB Buprenorphine Injection - Patient Supplied Today F11.90 - Opioid use, unspecified, uncomplicated
== END 2024-03-23 10:59 | disposition home or self-care (01) ==
LOC: HO.HCC 09:30
PROVIDERS: PCP Internal Medicine
DX: F11.90 Opioid use, unspecified, uncomplicated (principal)

== ENCOUNTER → 2024-03-23 09:30 | Outpatient (BNVA) | payer OTHER, SELFPAY | PROVIDERS: PCP Internal Medicine | DX: F11.90 Opioid use, unspecified, uncomplicated (principal) | CPT/HCPCS: 96372; J0578 ==

== ENCOUNTER 2024-03-24 08:46 | Outpatient (AMB) | payer OTHER, SELFPAY ==
--- NOTE | 2024-03-24 08:47 | MHC.AM.SUB ---
Intake Visit Reasons: Tele Allergies seasonal Allergy (Unknown, Uncoded 05/07/23 09:11) congestion Naloxone HCl Adverse Reaction (Unknown, Uncoded 05/07/23 09:11) migraines [facility] HPI Tele: Details: Patient presents for telehealth 4 injections feels like they wear off after 2 weeks Reporting sx of withdrawal-hot/cold is the most predominant sx He identified that these sx occur when he is in a stressful situations, usually at work Discussed steady stated for Brixadi is usually 4 injections Discussed switching back to buprenorphine monoproduct for breakthrough sx of withdrawal Review of Systems Const Reports as per HPI Telehealth Telehealth Telehealth Platform: Telephone Location of provider rendering services: practice address Location of patient: other Patient Identification confirmed using: Name, : Yes Telehealth method: voice only Patient verbally consented to treatment: Yes Patient verbally consented to billing insurance company: Yes Minutes spent on Phone/Video with Pt.: 20 Assessment & Plan Assessment & Plan (1) Opioid use disorder, moderate, in sustained remission: Code(s): F11.21 - Opioid dependence, in remission Category: Medical Plan: buprenorphine 8mg films refilled--encouraged to take 1/2 tab when sx present encouraged patient to make note of when sx so that we can review at next visit next injection scheduled--will request next injections not be in arms as in some cases less plasma concentration with injection in upper arm Medications: Refilled buprenorphine HCl 8 mg sublingual DAILY PRN 30 tabs 0RF breakthrough withdrawal Discontinued buprenorphine-naloxone 4-1 mg (Suboxone) Discontinued Reason: Doctor's Order 1 film buccal Q24H PRN 14 ea 0RF withdrawal symptoms methylphenidate HCl ER (Concerta) Partial Fill upon patient request. 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
== END 2024-03-24 09:26 | disposition home or self-care (01) ==
PROVIDERS: PCP Internal Medicine; Visit Provider Nurse Practitioner Psychiatric/Mental Health
DX: F11.21 Opioid dependence, in remission (principal)
CPT/HCPCS: 99214

== ENCOUNTER → 2024-03-24 08:46 | Outpatient (BNVA) | payer OTHER, SELFPAY | PROVIDERS: PCP Internal Medicine; Visit Provider Nurse Practitioner Psychiatric/Mental Health ==

== ENCOUNTER 2024-04-28 09:21 | Outpatient (AMB) | payer OTHER, SELFPAY ==
[2024-04-28 09:30] VITALS: BP 118/70
--- NOTE | 2024-04-28 09:34 | MHC.AM.SUB ---
Vital Signs 04/28/24 09:30 BP 118/70 Blood Pressure Location Rt brachial Intake Visit Reasons: MAT office Allergies seasonal Allergy (Unknown, Uncoded 05/07/23 09:11) congestion Naloxone HCl Adverse Reaction (Unknown, Uncoded 05/07/23 09:11) migraines HPI HPI MAT office: Details: Patient presents for follow up Not tolerating injection anxiety sx throughout the month Acknowledged this is likely unrelated to the injection itself, but anxiety associated with not having medication to take daily still would like to taper dose Physical Exam Vital Signs: Last Vital Signs BP 118/70 04/28/24 09:30 Assessment & Plan Assessment & Plan (1) Opioid use disorder, moderate, in sustained remission: Code(s): F11.21 - Opioid dependence, in remission Category: Medical Plan: continue oral buprenorphine follow up one month telehealth to review plan for anxiety if needed [facility] Medical History (Updated 05/07/23 @ 10:12 by Charisse Jacobson CNP) Opioid use disorder Surgical History History of surgery on lower extremity H/O arthroscopic knee surgery History of carpal tunnel release Family History Mother Migraines Social History Alcohol intake: never Patient Tobacco Use Status: Never used Tobacco Second Hand Smoke Exposure: No Substance Use Type: Marijuana Current occupational status: employed 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
== END 2024-04-28 09:56 | disposition home or self-care (01) ==
PROVIDERS: PCP Internal Medicine; Visit Provider Nurse Practitioner Psychiatric/Mental Health
DX: F11.21 Opioid dependence, in remission (principal)
CPT/HCPCS: 99214

== ENCOUNTER → 2024-04-28 09:21 | Outpatient (BNVA) | payer OTHER, SELFPAY | PROVIDERS: PCP Internal Medicine; Visit Provider Nurse Practitioner Psychiatric/Mental Health ==

== ENCOUNTER 2024-05-26 09:27 | Outpatient (AMB) | payer OTHER, SELFPAY ==
--- NOTE | 2024-05-26 09:29 | A.OFFVISCC_ITS ---
Intake Visit Reasons: MAT Tele Allergies seasonal Allergy (Unknown, Uncoded 05/07/23 09:11) congestion Naloxone HCl Adverse Reaction (Unknown, Uncoded 05/07/23 09:11) migraines HPI HPI MAT Tele: Details: Patient presents for follow up via telehealth taking 1.5 films daily still having anxiety willing to trial an SSRI discussed zoloft, dosing, side effects, goals of treatment Review of Systems Const Reports as per HPI Telehealth Telehealth Telehealth Platform: Telephone Location of provider rendering services: practice address Location of patient: other Patient Identification confirmed using: Name, : Yes Telehealth method: voice only Patient verbally consented to treatment: Yes Patient verbally consented to billing insurance company: Yes Minutes spent on Phone/Video with Pt.: 15 [facility] Medical History (Updated 05/07/23 @ 10:12 by Charisse Jacobson CNP) Opioid use disorder Surgical History History of surgery on lower extremity H/O arthroscopic knee surgery History of carpal tunnel release Family History Mother Migraines Social History Alcohol intake: never Patient Tobacco Use Status: Never used Tobacco Second Hand Smoke Exposure: No Substance Use Type: Marijuana Current occupational status: employed 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
== END 2024-05-26 09:42 | disposition home or self-care (01) ==
PROVIDERS: PCP Internal Medicine; Visit Provider Nurse Practitioner Psychiatric/Mental Health
DX: F11.21 Opioid dependence, in remission (principal)
CPT/HCPCS: 98967

== ENCOUNTER → 2024-05-26 09:27 | Outpatient (BNVA) | payer OTHER, SELFPAY | PROVIDERS: PCP Internal Medicine; Visit Provider Nurse Practitioner Psychiatric/Mental Health ==

== ENCOUNTER 2024-06-23 08:57 | Outpatient (AMB) | payer OTHER, SELFPAY ==
--- NOTE | 2024-06-23 08:56 | A.OFFVISCC_ITS ---
Intake Visit Reasons: MAT Tele Allergies seasonal Allergy (Unknown, Uncoded 05/07/23 09:11) congestion Naloxone HCl Adverse Reaction (Unknown, Uncoded 05/07/23 09:11) migraines HPI HPI MAT Tele: Details: Patient presents for follow up via telehealth Still taking Suboxone 12mg every other day I don't feel great, but I don't feel terrible Tolerating Sertraline 50mg --denies any side effects No changes in irritability Willing to increase dose Review of Systems Const Reports as per HPI Telehealth Telehealth Telehealth Platform: Telephone Location of provider rendering services: practice address Location of patient: address on file Patient Identification confirmed using: Name, : Yes Telehealth method: voice only Patient verbally consented to treatment: Yes Minutes spent on Phone/Video with Pt.: 15 [facility] Medical History (Updated 05/07/23 @ 10:12 by Charisse Jacobson CH[employer] PAINTER) Opioid use disorder Surgical History History of surgery on lower extremity H/O arthroscopic knee surgery History of carpal tunnel release Family History (Reviewed 05/21/22 @ 12:16 by Caryl Casanova [facility]) Mother Migraines Social History Alcohol intake: never Patient Tobacco Use Status: Never used Tobacco Second Hand Smoke Exposure: No Substance Use Type: Marijuana Current occupational status: employed Current occupation: S[employer] Assessment & Plan Assessment & Plan (1) Opioid use disorder, moderate, in sustained remission: Code(s): F11.21 - Opioid dependence, in remission Category: Medical Plan: * continue suboxone at current dose * increase sertraline to 75mg QD * follow up 6 weeks
--- OUTSIDE RECORDS SUMMARY | 2024-06-23 09:16 | XMS_ITS | Clinical Summary ---
Author Organization [facility] Address [address] [place] [address] Care Team Providers Care Bulb Weeder Name Role Phone Unavailable Primary Care Provider Unavailabl e Social History Tobacco Use Types Packs/Day Years Used Date Smoking Tobacco: Never Assessed Sex and Gender Information Value Date Recorded Sex Assigned at Not on file Gender Identity Not on file Sexual Orientation Not on file Last Filed Vital Signs Vital Sign Reading Time Taken Comments Blood Pressure 118/74 07/24/2010 4:19 PM EST Pulse 72 07/24/2010 4:19 PM EST Temperature - - Respiratory Rate 12 07/24/2010 4:19 PM EST Oxygen Saturation - - Inhaled Oxygen Concentration - - Weight 82.6 kg (182 lb) 07/24/2010 4:19 PM EST Height 180.3 cm (5' 11 ) 07/24/2010 4:19 PM EST Body Mass Index 25.38 07/24/2010 4:19 PM EST Plan of Treatment Health Maintenance Due Date Last Done Comments Hepatitis C Virus Screening 1976 HIV Screening 1989 DTaP/Tdap/Td Vaccines (1 - Tdap) 1995 Hepatitis B Vaccines (1 of 3 - 19+ 3-dose series) 1995 COVID-19 Vaccine (2023-2 5 season) 2024 Pneumococcal Vaccine: Pediat denisse (0-5 Years) and At-Risk Patients (6 to 49 Years) Aged Out No longer eligible b ased on patient's age to complete this topic
== END 2024-06-23 09:09 | disposition home or self-care (01) ==
PROVIDERS: PCP Internal Medicine; Visit Provider Nurse Practitioner Psychiatric/Mental Health
DX: F11.21 Opioid dependence, in remission (principal)
CPT/HCPCS: 98012

== ENCOUNTER → 2024-06-23 08:57 | Outpatient (BNVA) | payer OTHER, SELFPAY | PROVIDERS: PCP Internal Medicine; Visit Provider Nurse Practitioner Psychiatric/Mental Health ==

== ENCOUNTER 2024-08-04 08:46 | Outpatient (AMB) | payer OTHER, SELFPAY ==
--- NOTE | 2024-08-04 08:47 | MHC.AM.SUB ---
Intake Visit Reasons: MAT Tele Allergies seasonal Allergy (Unknown, Uncoded 05/07/23 09:11) congestion Naloxone HCl Adverse Reaction (Unknown, Uncoded 05/07/23 09:11) migraines [facility] HPI MAT Tele: Details: Patient presents for follow up via telehealth Currently prescribed Buprenorphine 8mg BID Tolerating current dose --will continue with PO Discussed sertraline, feels that it is working does not feels as overwhelmed or reactive since dose increase Denies any side effects no change to sleep or appetite Review of Systems Const Reports as per HPI Telehealth Telehealth Telehealth Platform: Telephone Location of provider rendering services: practice address Location of patient: other Patient Identification confirmed using: Name, : Yes Telehealth method: voice only Patient verbally consented to treatment: Yes Patient verbally consented to billing insurance company: Yes Minutes spent on Phone/Video with Pt.: 15 [facility] Medical History (Updated 08/08/24 @ 12:23 by Charisse Jacobson [employer] 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) Opioid use disorder Surgical History History of surgery on lower extremity H/O arthroscopic knee surgery History of carpal tunnel release Family History Mother Migraines Social History Alcohol intake: never Patient Tobacco Use Status: Never used Tobacco Second Hand Smoke Exposure: No Substance Use Type: Marijuana Current occupational status: employed 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 Assessment & Plan Assessment & Plan (1) Opioid use disorder, moderate, in sustained remission: Code(s): F11.21 - Opioid dependence, in remission Category: Medical Plan: continue suboxone at current dose d/c Brixadi (2) Generalized anxiety disorder: Code(s): F41.1 - Generalized anxiety disorder Category: Medical Plan: sertraline increased to 100mg daily and refills provided Medications: New sertraline 100 mg PO DAILY 90 tabs 2RF Discontinued buprenorphine ER (Brixadi Monthly) Discontinued Reason: Patient no longer taking 128 mg (0.36 mL) subcut Q28D 0.36 mL 5RF sertraline (Zoloft) Discontinued Reason: Doctor's Order 75 mg (1.5 x 50 mg) PO DAILY 135 tabs 0RF
== END 2024-08-04 09:04 | disposition home or self-care (01) ==
LOC: HO.HCC 08:46
PROVIDERS: PCP Internal Medicine; Visit Provider Nurse Practitioner Psychiatric/Mental Health
DX: F11.21 Opioid dependence, in remission (principal); F41.1 Generalized anxiety disorder
CPT/HCPCS: 98014

== ENCOUNTER 2024-09-15 09:46 | Outpatient (AMB) | payer OTHER, SELFPAY ==
--- NOTE | 2024-09-15 09:48 | MHC.OFFVIS ---
Vital Signs 09/15/24 09:58 Pulse 60 Pulse Source Pulse Oximeter Pulse Oximetry (%) 98 Oxygen Delivery Method Room Air Intake Visit Reasons: mat visit Allergies seasonal Allergy (Unknown, Uncoded 05/07/23 09:11) congestion Naloxone HCl Adverse Reaction (Unknown, Uncoded 05/07/23 09:11) migraines HPI HPI mat visit: Details: He has been doing well on two 8 mg buprenorphine tablets daily. He has no complaints. He doesnt need any counseling at this time. 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 Review of Systems Const All systems reviewed & are unremarkable except as noted in HPI and below Physical Exam Vital Signs: Last Vital Signs Pulse 60 09/15/24 09:58 Pulse Ox 98 09/15/24 09:58 Oxygen Delivery Method Room Air 09/15/24 09:58 Const General: cooperative Results AMB 14 Panel Urine Drug Screen Urine Marijuana (THC) Negative Last Edit by Nir Joseph CMA on 09/15/24 09:59 Urine Cocaine Negative Last Edit by Nir Joseph CMA on 09/15/24 09:59 Urine Morphine Negative Last Edit by Nir Joseph CMA on 09/15/24 09:59 Urine Methamphetamine Negative Last Edit by Nir Joseph CMA on 09/15/24 09:59 Urine Amphetamine Negative Last Edit by Nir Joseph CMA on 09/15/24 09:59 Urine Benzodiazepine Negative Last Edit by Nir Joseph CMA on 09/15/24 09:59 Urine Barbiturates Negative Last Edit by Nir Joseph CMA on 09/15/24 09:59 Urine Methadone Negative Last Edit by Nir Joseph CMA on 09/15/24 09:59 Urine Buprenorphine Positive Last Edit by Nir Joseph CMA on 09/15/24 09:59 Urine Tricyclic Antidepressant Negative Last Edit by Nir Joseph CMA on 09/15/24 09:59 Urine MDMA Negative Last Edit by Nir Joseph CMA on 09/15/24 09:59 Urine Oxycodone Negative Last Edit by Nir Joseph CMA on 09/15/24 09:59 Urine Phencyclidine Negative Last Edit by Nir Joseph CMA on 09/15/24 09:59 Urine Propoxyphene Negative Last Edit by Nir Joseph CMA on 09/15/24 09:59 Results Reviewed Results Reviewed: Laboratory Last Values POC Urine Buprenorphine Positive 09/15/24 09:58 POC Urine Morphine Negative 09/15/24 09:58 POC Urine Oxycodone Negative 09/15/24 09:58 POC Urine Methadone Negative 09/15/24 09:58 POC Urine Propoxyphene Negative 09/15/24 09:58 POC Urine Barbiturates Negative 09/15/24 09:58 POC U Tricyclic Antidpr Negative 09/15/24 09:58 POC Urine PCP Negative 09/15/24 09:58 POC Ur Amphetamines Negative 09/15/24 09:58 POC Ur Methamphetamine Negative 09/15/24 09:58 POC Urine MDMA Negative 09/15/24 09:58 POC Ur Benzodiazepine Negative 09/15/24 09:58 POC Urine Cocaine Negative 09/15/24 09:58 POC Ur Marijuana (THC) Negative 09/15/24 09:58 Assessment & Plan Assessment & Plan (1) Generalized anxiety disorder: Comment: He is doing well He has no Hepatitis C or HIV concerns Code(s): F41.1 - Generalized anxiety disorder Category: Medical Plan: Would continue buprenorphine 8 mg bid. See in three months. Continue sertraline 100 mg daily He has Narcan. No counseling needed at this time or lab work. (2) Opioid use disorder, moderate, in sustained remission: Code(s): F11.21 - Opioid dependence, in remission Category: Medical Plan: na Orders: Orders AMB 14 Panel Urine Drug Screen Today Z51.81 - Encounter for therapeutic drug level monitoring Medications: New buprenorphine HCl 16 mg (2 x 8 mg) sublingual DAILY 60 tabs 2RF 30 days Coding Level of Care Code Est Pt Level 3 (27568) Diagnoses Generalized anxiety disorder F41.1 Opioid use disorder, moderate, in sustained remission F11.21
[2024-09-15 09:58] VITALS: PULSE 60; O2SAT 98
--- OUTSIDE RECORDS SUMMARY | 2024-09-15 10:33 | XMS_ITS | Clinical Summary ---
Author Organization [facility] Address [address] [place] [address] Care Team Providers Care Behavioral School Counselors Name Role Phone Unavailable Primary Care Provider Unavailabl e Social History Tobacco Use Types Packs/Day Years Used Date Smoking Tobacco: Never Assessed Sex and Gender Information Value Date Recorded Sex Assigned at Not on file Legal Sex Male 1:53 PM EDT Gender Identity Not on file Sexual Orientation [...]
== END 2024-09-15 10:17 | disposition home or self-care (01) ==
LOC: HO.HCC 09:46
PROVIDERS: PCP Internal Medicine; Visit Provider Internal Medicine
DX: F11.21 Opioid dependence, in remission (principal); Z51.81 Encounter for therapeutic drug level monitoring
CPT/HCPCS: 99213

== ENCOUNTER → 2024-09-15 09:46 | Outpatient (BNVA) | payer OTHER, SELFPAY | PROVIDERS: PCP Internal Medicine; Visit Provider Internal Medicine | DX: F41.1 Generalized anxiety disorder (principal); F11.21 Opioid dependence, in remission; Z51.81 Encounter for therapeutic drug level monitoring | CPT/HCPCS: 80307 ==

== ENCOUNTER 2024-12-22 09:25 | Outpatient (AMB) | payer OTHER, SELFPAY ==
--- OUTSIDE RECORDS SUMMARY | 2024-12-22 09:31 | XMS_ITS | Clinical Summary ---
Author Organization [facility] Address [address] [place] [address] Care Team Providers Care Management Developer Name Role Phone Unavailable Primary Care Provider [...]
--- NOTE | 2024-12-22 09:36 | A.OFFVIS_ITS ---
Vital Signs 12/22/24 09:37 Height 5 ft 11 in Weight 193 lb BMI 26.9 BP 120/80 Pulse 78 Pulse Oximetry (%) 98 Intake Visit Reasons: MAT Allergies seasonal Allergy (Unknown, Uncoded 12/22/24 09:37) congestion Naloxone HCl Adverse Reaction (Unknown, Uncoded 12/22/24 09:37) migraines HPI Comments Details: He is doing well. He has no complaints. 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 See as scheduled. Medications: New buprenorphine HCl 8 mg sublingual BID 60 tabs 2RF 30 days Coding Level of Care Code Est Pt Level 3 (23553) Diagnoses Opioid use disorder, moderate, in sustained remission F11.21
[2024-12-22 09:37] VITALS: BP 120/80; PULSE 78; O2SAT 98; BMI 26.9
== END 2024-12-22 10:30 | disposition home or self-care (01) ==
LOC: HO.HCC 09:26
PROVIDERS: PCP Internal Medicine; Visit Provider Internal Medicine
DX: F11.21 Opioid dependence, in remission (principal)
CPT/HCPCS: 99213

== ENCOUNTER 2025-03-26 10:04 | Outpatient (AMB) | payer OTHER, SELFPAY ==
[2025-03-26 10:07] VITALS: PULSE 66; O2SAT 98; BMI 28.0
--- NOTE | 2025-03-26 10:07 | A.OFFVIS_ITS ---
Vital Signs 03/26/25 10:07 Height 5 ft 11 in Weight 201 lb BMI 28.0 Pulse 66 Pulse Source Pulse Oximeter Pulse Oximetry (%) 98 Intake Visit Reasons: MAT Allergies seasonal Allergy (Unknown, Uncoded 03/26/25 10:08) congestion Naloxone HCl Adverse Reaction (Unknown, Uncoded 03/26/25 10:08) migraines HPI Comments Details: r History of Present Illness The patient is a 50 year old male presenting with a follow-up for opioid use disorder management. He is currently adhering to Suboxone therapy as directed and is contemplating a possible tapering plan at a later stage. He has experienced mild constipation, but otherwise his compliance with the regimen has been positive. There is no indication of acute deterioration or significant new symptoms related to his condition. Review of Systems - Gastrointestinal: Reports mild constipation Physical Exam - Vitals- Stable - Oropharynx- Clear - Respiratory- Lungs clear - Cardiovascular- Heart rate regular rhythm - Abdomen- Soft and non-tender Results Plan Patient was informed and verbally consented to the use of an ambient scribe for clinic note documentation during this visit. 1. Opioid use, unspecified, uncomplicated F11.90 The patient will maintain his current Suboxone regimen as it's effectively controlling his condition. He is considering tapering Suboxone in the future. Further discussions on tapering will occur at a follow-up based on his readiness. 2. Mild Constipation The patient experiences mild constipation potentially caused by Suboxone. No significant impact on daily activities is noted. Monitoring and symptomatic management are advised. Discussion Notes I have discussed the continuation of Suboxone therapy with the patient as it remains effective for managing his opioid use disorder. We reviewed the potential for a future tapering of the medication, which will depend on his clinical stability and preference. Additionally, I have addressed his mild constipation, emphasizing the importance of lifestyle modifications and symptom monitoring. Follow-up visits are recommended to reevaluate his condition and treatment plans. Medical Decision Making The decision to continue Suboxone therapy is based on the patient's stable co ndition and effective control of his opioid use disorder symptoms. Mild constipation was acknowledged as a side effect, and it is manageable with lifestyle changes. We considered the option of tapering the Suboxone, but it was decided to maintain the current dose until the patient is ready. Ongoing monitoring and follow-up are critical components of the treatment strategy. Patient Instructions - Keep taking Suboxone as prescribed. - Drink plenty of water and eat a high-fiber diet to help with constipation. - Tell me if your constipation gets worse or changes. - Come back for your next appointment as planned. 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 Physical Exam Vital Signs: Last Vital Signs Pulse 66 03/26/25 10:07 Pulse Ox 98 03/26/25 10:07 BMI result Body Mass Index 28.0 Assessment & Plan Assessment & Plan (1) Other group home (current) drug therapy: Code(s): Z79.899 - Other termite treater (current) drug therapy Category: Medical (2) Opioid use disorder, moderate, in sustained remission: Comment: He is doing well Code(s): F11.21 - Opioid dependence, in remission Category: Medical Plan as above Medications: Refilled buprenorphine HCl 8 mg sublingual BID 60 tabs 2RF 30 days Coding Level of Care Code Est Pt Level 3 (34325) Diagnoses Other termite treater (current) drug therapy Z79.899 Opioid use disorder, moderate, in sustained remission F11.21
--- OUTSIDE RECORDS SUMMARY | 2025-03-26 11:44 | XMS_ITS | Clinical Summary ---
Author Organization [facility] Address [address] [place] [address] Care Team Providers Care Psychologist Developmental Name Role Phone Unavailable Primary Care Provider [...] series) 1995 COVID-19 Vaccine (2023-2 5 season) 2025 Pneumococcal Vaccine: Pediat denisse (0-5 Years) and At-Risk Patients (6 to 49 Years) Aged Out No longer eligible b ased on patient's age to complete this topic
--- OUTSIDE RECORDS SUMMARY | 2025-03-26 11:45 | XMS_ITS ---
Author Name [facility] Organization Unknown Care Team Organization Name Specialty Phone Email Start Date End Da te [facility] DEMOND GASTELUM Primary Care 03/24/2022 01/03/2024
== END 2025-03-26 10:43 | disposition home or self-care (01) ==
PROVIDERS: PCP Internal Medicine; Visit Provider Internal Medicine
DX: Z79.899 Other long term (current) drug therapy (principal); F11.21 Opioid dependence, in remission
CPT/HCPCS: 99213